=== PATIENT | female | born 1985 | race Caucasian/White ===

== ENCOUNTER 2017-03-30 15:14 | Inpatient (IN) | payer BC, SELFPAY ==
[~2017-03-30 15:14] MED LIST: ISOVUE-370 76%-LOCM 1 ML ONE; Iopamidol 370 76% 50 ML VIAL FS ONE
[2017-03-30 15:39] LABS: Bilirubin Negative (Negative); Blood, Urine Negative (Negative); Glucose, Urine (Dipstick) Negative (Negative); Ketone, Urine Negative (Negative); Nitrite Negative (Negative); Protein, Urine (Dipstick) Negative (Neg-Trace)
[2017-03-30 15:41] LABS: Bacteria/HPF None Seen HPF (None Seen); Hyaline Casts/LPF 7-10 HYALINE CAST LPF (0-3 Hyaline); WBC/HPF 0-3 HPF (0-3)
[2017-03-30 16:32] LABS: #Eosinphils 0.1 thou/uL (0.0-0.7); #Lymphocytes 1.1 thou/uL (1.20-3.40); #Monocytes 0.3 thou/uL (0.11-0.59); #Neutrophils 2.2 thou/uL (1.40-6.50); %Basophils 0.5 % (0.0-1.0); %Eosinophils 3.3 % (0.0-10.0); %Lymphocytes 29.9 % (21.0-51.0); %Monocytes 8.7 % (0.0-10.0); Hematocrit 24.7 % (36.0-47.0); Mean Platelet Volume 9.6 fL (7.4-10.4); Red Blood Cell (RBC) Count 3.48 mill/uL (4.20-5.40); White Blood Cell (WBC) Count 3.8 thou/uL (4.8-10.8)
[2017-03-30 16:43] LABS: Anisocytosis SLIGHT = 6-15 cells (100X) (0-5/hpf); Elliptocytes MODERATE= 6-15 cells (100X) (0-1/hpf); Hypochromia MODERATE=16-30 cells (100X) (0-5/hpf); Microcytosis MODERATE=15-30 cells (100X) (0-5/hpf); Ovalocytes SLIGHT = 2-5 cells (100X) (0-1/hpf); Poikilocytosis SLIGHT = 6-15 cells (100X) (0-5/hpf); Polychromasia MODERATE = 3-4 cells (100X) (0-2/hpf); Schistocytes SLIGHT = 2-5 cells (100X) (0-1/hpf); Target Cells SLIGHT = 2-5 cells (100X) (0-1/hpf); Tear Drops SLIGHT = 2-5 cells (100X) (0-1/hpf)
[2017-03-30 16:52] LABS: Anion Gap 11 mmol/L (10-20); BUN (Urea Nitrogen) 10 mg/dL (7.0-18.7); Calc. Creatinine Clearance 0 mL/min (70-130); Calcium 9.1 mg/dL (7.8-10.44); Carbon Dioxide 26 mmol/L (22-29); Chloride 105 mmol/L (98-107); Estimated GFR-MDRD Greater than 90
--- NOTE | 2017-03-30 17:55 | CT ---
CT ABDOMEN AND PELVIS WITH ORAL AND IV CONTRAST: 03/30/17 HISTORY: Abdominal pain. FINDINGS: The lung bases are clear. The liver, spleen, pancreas, adrenal glands and kidneys are normal. No elizabeth cified gallstones are seen. No free air or lymphadenopathy is seen. There is a tiny amount of free f luid in the pelvis. The uterus and ovaries are present. There is a 2.5 cm cyst in the left adnexa, l ikely ovary. There is fluid in the endometrial and endocervical canals. The small bowel loops are not abnormally dilated. There is fecal material in the colon. A normal evette earing appendix is seen. Postop changes of bilateral tubal ligation are present. There are pelvic phleboliths. IMPRESSION: 1. No CT evidence of appendicitis. 2. Fluid in the endometrial/endocervical canal with tiny amount of free fluid in the pelvis and a 2.5 cm left adnexal cyst, likely physiologic ovarian cyst. POS: [facility]
[2017-03-30] MEDS ORDERED: Sodium Chloride 0.9% 1,000 ML IV SCH (22:22)
[2017-03-30] MEDS ORDERED: Ondansetron ODT 4 MG TAB SL PRN (22:22)
[2017-03-30] MEDS ORDERED: Ondansetron HCl/PF 4 MG/2 ML Vial IVP PRN (22:22)
[2017-03-30 22:39] VITALS: BMI 16.6
[2017-03-30 23:25] LABS: Iron 12 ug/dL (50-170)
[2017-03-31 05:33] LABS: Anion Gap 7 mmol/L (10-20); BUN (Urea Nitrogen) 12 mg/dL (7.0-18.7); Calc. Creatinine Clearance 73 mL/min (70-130); Calcium 8.6 mg/dL (7.8-10.44); Carbon Dioxide 27 mmol/L (22-29); Chloride 110 mmol/L (98-107); Estimated GFR-MDRD 87
[2017-03-31 05:34] LABS: #Eosinphils 0.2 thou/uL (0.0-0.7); #Lymphocytes 1.5 thou/uL (1.20-3.40); #Monocytes 0.6 thou/uL (0.11-0.59); #Neutrophils 3.2 thou/uL (1.40-6.50); %Basophils 0.5 % (0.0-1.0); %Eosinophils 3.3 % (0.0-10.0); %Monocytes 10.2 % (0.0-10.0); Hematocrit 27.5 % (36.0-47.0); Mean Platelet Volume 9.5 fL (7.4-10.4); Red Blood Cell (RBC) Count 3.68 mill/uL (4.20-5.40); White Blood Cell (WBC) Count 5.5 thou/uL (4.8-10.8)
--- NOTE | 2017-03-31 06:36 | PDOC.FM ---
- Subjective Subjective: Mrs. Clemens is feeling better this morning after receiving the unit of blood. No longer getting lightheadedness with ambulation. Denies chest pain, fever, chills, dyspnea, n/v/d/abd pain. Patient states she will follow up with mutuel teller soon. - Objective MAR Reviewed: Yes Vital Signs & Weight: Vital Signs (12 hours) Temp Pulse Pulse Resp BP BP Pulse Ox 03/31/17 04:00 98.0 F 92 16 101/67 98 03/31/17 00:46 97.7 F 91 16 106/61 03/31/17 00:40 98.1 F 96 16 101/62 03/30/17 23:06 97.7 F 71 16 99 03/30/17 22:00 98.2 F 71 18 110/68 99 Weight Weight 43.998 kg I&O: 03/29/17 03/30/17 03/31/17 06:59 06:59 06:59 Intake Total 350 Balance 350 Result Diagrams: 03/31/17 04:52 03/31/17 04:52 <Anirudh Yarbrough - Last Filed: 03/31/17 07:43> - Objective Vital Signs & Weight: Vital Signs (12 hours) Temp Pulse Pulse Resp BP BP Pulse Ox 03/31/17 08:00 98 F 76 16 100 03/31/17 07:38 98 F 76 16 95/60 100 03/31/17 04:00 98.0 F 92 16 101/67 98 03/31/17 00:46 97.7 F 91 16 106/61 03/31/17 00:40 98.1 F 96 16 101/62 Weight Weight 97 lb I&O: 03/30/17 03/31/17 04/01/17 06:59 06:59 06:59 Intake Total 350 Balance 350 Result Diagrams: 03/31/17 04:52 03/31/17 04:52 <Pamela Valdes - Last Filed: 03/31/17 11:18> Phys Exam - Physical Examination Constitutional: NAD HEENT: moist MMs, sclera anicteric Neck: supple, full ROM Respiratory: no wheezing, no rales, no rhonchi, clear to auscultation bilateral Cardiovascular: RRR, no significant murmur, no rub, gallop Gastrointestinal: soft, non-tender, no distention Musculoskeletal: no edema, pulses present Neurological: non-focal, moves all 4 limbs Psychiatric: normal affect, A&O x 3 Skin: no rash, cap refill <2 seconds <Anirudh Yarbrough - Last Filed: 03/31/17 07:43> Dx/Plan (1) Symptomatic anemia Code(s): D64.9 - ANEMIA, UNSPECIFIED Status: Acute Plan: -MVC is 70, likely Iron Def anemia with hx of AUB -patient received 1 unit pRBC, Hb up to 8.0. -will need OP f/u with shift manager - (2) Abnormal uterine bleeding (AUB) Code(s): N93.9 - ABNORMAL UTERINE AND VAGINAL BLEEDING, UNSPECIFIED Status: Acute Plan: -not actively bleeding -will need close f/u with mutuel teller to discuss plans for management (3) Endometriosis Code(s): N80.9 - ENDOMETRIOSIS, UNSPECIFIED Status: Acute Plan: -no acute abdomen, no peritoneal signs -CT-no evidence of appendicitis, shows physiologic cyst - Plan Plan: likely ready for discharge with close f/u with mutuel teller in OP setting <Anirudh Yarbrough - Last Filed: 03/31/17 07:43> Attending Addendum - Attending Addendum I personally evaluated the patient and discussed the management with Dr. Yarbrough. I agree with the History, Examination, Assessment and Plan documented above with any addition or exceptions noted below. Patient has symptomatic anemia and has improved significantly after transfusion with 1 unit PRBC's. She has no current vaginal bleeding and her pain is controlled, so she is stable for discharge. She will follow up with her mine exploration engineer this coming week. <Pamela Valdes - Last Filed: 03/31/17 11:18>
--- NOTE | 2017-03-31 07:46 | HP-2 ---
DATE OF SERVICE: 03/30/2017 TIME OF SERVICE: 2000 hours. CODE STATUS: FULL. PRIMARY CARE PHYSICIAN: [facility] ATTENDING: Pamela Valdes M.D. RESIDENT: Willian Owens DO HISTORIAN: Patient. SPECIALIST: Dr. Guerrero - OB. CHIEF COMPLAINT: Right lower quadrant pain. HISTORY OF PRESENT ILLNESS: A 32-year-old female with a chief complaint of right lower quadrant pain with associated weakness and lightheadedness. She has a long history of disordered uterine bleeding. Hysterectomy and right oophorectomy have been recommended previously by her OB. She states that she is currently not bleeding, however, had been last week. She states that she has a right lower quadrant pain that is not necessarily new; however, it has become worse than what it has in the past and want to make sure that nothing had changed. She denies fever, chills, nausea or vomiting. Pain does not radiate. It is stabbing in quality, similar to previous pain; however, the pain is worse than normal. Currently, she is not bleeding. She says that she has had surgery recommended in the past and is avoiding it just because she is afraid of the surgery. PAST MEDICAL HISTORY: Includes normal spontaneous vaginal deliveries x2, endometriosis, known ovarian cyst. PAST SURGICAL HISTORY: Includes tubal ligation. ALLERGIES: No known drug allergies. MEDICATIONS: None. FAMILY HISTORY: Grandmother has a history of breast cancer. Uncle has a history of colon cancer. SOCIAL HISTORY: Patient has a [id number]-[id number] history of smoking, is not a current smoker. Alcohol: None. Drugs: None. REVIEW OF SYSTEMS: Ten-point review of systems was conducted and was negative with the exception of previously noted symptoms. PHYSICAL EXAMINATION: VITAL SIGNS: Blood pressure 122/88, pulse 84, respiratory rate 16, T-max 98.4, pulse ox 100% on room air, weight 47.6 kilograms. GENERAL: The patient is alert and oriented x3, in no apparent distress. She is thin. HEENT: PERRLA, EOMI. Conjunctiva is pale. NECK: Supple, without lymphadenopathy. CARDIOVASCULAR: Regular rate and rhythm. No murmur or gallops. RESPIRATORY: Normal effort. Clear to auscultation bilaterally without retractions. SKIN: Warm and dry. ABDOMEN: Soft. Bowel sounds in all four quadrants. There is right lower quadrant tenderness and very mild left lower quadrant tenderness. EXTREMITIES: No clubbing or cyanosis. Her nail beds are pale. MUSCULOSKELETAL: Tone is normal in upper and lower extremities. NEUROLOGIC: No focal neurological deficits. Sensation is within normal limits. Cranial nerves II through XII grossly intact. LABORATORY DATA: CBC: Hemoglobin 6.8, hematocrit 24.7, white count 3.8, platelets 196, MCV 70.9. There is an RDW of 17.5%-7.6%, absolute neutrophil count 2189. BMP: Sodium 138, potassium 4.2, chloride 105, bicarbonate 26, BUN 10, creatinine 0.73, glucose 98, calcium 9.1. Patient is blood type of A positive. UA: Specific gravity 1.025, blood negative, protein negative, leukocyte esterase trace, nitrites negative, ketones negative, glucose negative , rbc's 4-6, wbc's 0-3, bacteria negative, squamous cells 4-6. IMAGING: CT abdomen and pelvis, no appendicitis, there was fluid in the endocervical canal, a 2.5 left adnexal cyst that appears to be physiologic. ASSESSMENT AND PLAN: This is a 32-year-old female with symptomatic microcytic anemia. 1. Symptomatic microcytic anemia. It is likely secondary to chronic blood loss from disordered uterine bleeding. The patient appears to be iron deficient. Transfuse 1 unit of packed red blood cells. Repeat hemoglobin and hematocrit in 4 hours and order iron studies to evaluate the cause of anemia. 2. Disordered uterine bleeding. The patient had been told in the past that she needed a hysterectomy and oophorectomy. We will follow up with her Obstetrics as outpatient. 3. Endometriosis. This is diagnosed in October per her history. The patient needs to be on oral contraceptive. We discussed starting that here and needs to follow up with her Obstetrics as outpatient. CARA
[2017-03-31] MEDS ORDERED: Ferrous Sulfate 325 MG TAB PO SCH (08:00)
[2017-03-31 08:12] LABS: Hematocrit 28.5 % (36.0-47.0)
[2017-03-31] MEDS ORDERED: FLU VACC QS2017-18 36 mo. & older 0.5 ML SYRINGE IM ONE (09:00)
[2017-03-31 11:41] VITALS: BP 89/44; TEMP 98.5
--- NOTE | 2017-03-31 12:57 | DIS-2 ---
DATE OF ADMISSION: 03/30/2017 DATE OF DISCHARGE: 03/31/2017 RESIDENT: Anirudh Yarbrough M.D. ADMITTING ATTENDING: Pamela Valdes M.D. DISCHARGE ATTENDING: Pamela Valdes M.D. CONSULTATIONS: None. PROCEDURES PERFORMED: Abdomen and pelvis CT. Impression: No CT evidence of appendicitis. Fluid i n the endometrial and endocervical canal with tiny amount of free fluid in the pelvis and 2.5 cm lef t adnexal cyst, likely physiologic ovarian cyst. PRIMARY DIAGNOSIS: Symptomatic microcytic anemia. SECONDARY DIAGNOSES: 1. Abnormal uterine bleeding. 2. Endometriosis. DISCHARGE MEDICATIONS: 1. Colace 100 mg p.o. daily. 2. Ferrous sulfate 325 mg p.o. b.i.d. with meals. DISCONTINUED MEDICATIONS: Zofran 4 mg SL q.6 hours p.r.n. HISTORY OF PRESENT ILLNESS AND HOSPITAL COURSE: Ms. Mel Clemens is a 32-year-old female who pr esented to the ED with chief complaint of right lower quadrant pain with associated weakness and lig htheadedness. She has had a long history of abnormal uterine bleeding, hysterotomy and right oophor ectomy; have recommended previously by her CONSTRUCTION COST ESTIMATOR. She states that she is not currently bleeding; h owever, but she has been for the last week. She says that her right lower quadrant abdominal pain h as also been chronic in nature; however, it has become worse than it was in the past and she wants t o make sure there is nothing going on. She denies any fever, chills, nausea or vomiting. Pain did not radiate. It was stabbing in quality. She states that her CONSTRUCTION COST ESTIMATOR recommended surgery in the pas t and she is avoiding it because she is worried about the surgery. When she got to the ED, her hemo globin was 6.[address] of the abdomen and pelvis showed no evidence of acute appendicitis. There was fluid in the endocervical canal and a 2.5 cm left adnexal cyst. She was transfused 1 unit of packe d red blood cells and repeat hemoglobin was 8.0. The morning of discharge, the patient stated that she was feeling much better and she was not getting lightheaded as she was not feeling as weak whene melinda she wanted to go to the restroom. She was ready for discharge and stated that she would follow up sometime this week with her CONSTRUCTION COST ESTIMATOR to discuss future management and how to stop her abnormal uter ine bleeding. She was never bleeding throughout her admission. Throughout the admission, her vital s were stable. Heart rate was anywhere from 76-92, respiratory rate was 16, afebrile. DISPOSITION: Guarded. DISCHARGE INSTRUCTIONS: 1. Location: Home. 2. Diet: As tolerated. No restrictions. 3. Activity: As tolerated. 4. Follow up with Dr. Guerrero, patient's CONSTRUCTION COST ESTIMATOR within 3 days.
== END 2017-03-31 12:40 | disposition home or self-care (01) | DRG 812 ==
LOC: ERS 15:14 → T4-B 21:56
PROVIDERS: ADMIT Internal Medicine; ATTEND Internal Medicine
PROC: 30233N1 Transfusion of Nonautologous Red Blood Cells into Peripheral Vein, Percutaneous Approach (ICD-10-PCS; principal; 2017-03-31)
DX: D50.0 Iron deficiency anemia secondary to blood loss (chronic) (principal); N80.9 Endometriosis, unspecified; N83.202 Unspecified ovarian cyst, left side; N93.9 Abnormal uterine and vaginal bleeding, unspecified; Z87.898 Personal history of other specified conditions; Z87.891 Personal history of nicotine dependence; Z80.3 Family history of malignant neoplasm of breast
CPT/HCPCS: 36415; 36430; 74177; 80048; 81003; 81015; 81025; 82728; 83540; 83550; 85025; 86850; 86900; 86901; 96360; 96361; A4216; P9016

== ENCOUNTER 2022-06-29 08:37 | Outpatient (CLI) | payer OTHER | END 2022-06-29 08:38 | disposition home or self-care (01) | LOC: BICMAMMO 08:37 | PROVIDERS: ATTEND Family Medicine | DX: N64.4 Mastodynia (principal); R07.9 Chest pain, unspecified; Z80.3 Family history of malignant neoplasm of breast; Z90.710 Acquired absence of both cervix and uterus | CPT/HCPCS: 77066; G0279 ==